=== PATIENT | male | born 1970 | race American Indian/Alaskan Native ===

== ENCOUNTER 2018-12-13 15:04 | Inpatient (IN) | payer BC ==
--- NOTE | 2018-12-13 15:55 | Emergency Department Report ---
Chief Complaint: Dyspnea/Respdistress Stated Complaint: SOB Time Seen by Provider: 12/13/18 15:52 - HPI History of Present Illness: pt presents with exertion SOB a week ago he states he walks 40 feet and feels SOB no SOB at rest (+) palpitations, lightheadedness no CP no recent surgery, no long car/plane ride, no immobilization no PMHx, no meds on a daily basis no hx of [place] no PCP no family cardiac hx no family hx of DVT/PE MSE screening note: Focused history and physical exam performed. Due to findings the following was ordered: EKG, CXR, labs ED Disposition for MSE Condition: Stable
[2018-12-13 16:24] LABS: BUN/Creatinine Ratio 18; Blood Urea Nitrogen 14 mg/dL (9-20); Calcium 8.9 mg/dL (8.4-10.2); Hemolysis Index 21
[2018-12-13 16:29] LABS: Mean Corpuscular HGB Conc 35 % (32-34); Platelet Count 151 K/mm3 (140-440); Red Blood Count 1.29 M/mm3 (3.65-5.03)
--- NOTE | 2018-12-13 16:31 | XRay Report ---
PROCEDURE: XR CHEST ROUTINE 2V TECHNIQUE: PA and lateral views of the chest HISTORY: SOB COMPARISONS: None FINDINGS: There is no evidence of focal infiltrate, pneumothorax or pleural fluid collection. The cardiomediastinal silhouette is normal in appearance. The bony structures are unremarkable. IMPRESSION: 1. No evidence of an acute pulmonary process. If further imaging is required, CT chest may be helpful. This document is electronically signed by Lida Rowland MD., December 13 2018 04:29:27 PM ET
[2018-12-13 16:44] LABS: Hematocrit 15.5 % (35.5-45.6); Hemoglobin 5.4 gm/dl (11.8-15.2); Mean Corpuscular Volume 120 fl (84-94); Red Cell Distribution Width 28.1 % (13.2-15.2)
--- NOTE | 2018-12-13 17:04 | Emergency Department Report ---
ED Shortness of Breath HPI - General Chief Complaint: Dyspnea/Respdistress Stated Complaint: SOB Time Seen by Provider: 12/13/18 16:52 Source: patient Mode of arrival: Ambulatory Limitations: No Limitations - History of Present Illness Initial Comments: Patient is a 48-year-old male presents emergency room for discharge on exertion that has been going on for a couple weeks. Patient states his symptoms have gradually worsened. Patient denies symptoms at rest. Patient denies chest pain. Patient complains of fatigue.. Patient states that his symptoms are better with rest and worse with exertion.. Patient states that his symptoms been going on for a couple weeks gradually but have worsened over the past 48 hours. Patient denies use of NSAIDs. Patient denies dark stool. Patient denies syncope. Patient denies dizziness. Patient denies headache. Patient denies past medical history. MD Complaint: shortness of breath -: Gradual Consistency: intermittent Improves With: rest Worsens With: exertion Treatments Prior to Arrival: none - Related Data Home Oxygen Therapy: No Allergies Allergy/AdvReac Type Severity Reaction Status Date / Time No Known Allergies Allergy Unverified 12/13/18 15:05 ED Review of Systems ROS: Stated complaint: SOB Other details as noted in HPI Constitutional: denies: chills, fever Eyes: denies: eye pain, eye discharge, vision change ENT: denies: ear pain, throat pain Respiratory: SOB with exertion. denies: cough, shortness of breath, SOB at re st, wheezing Cardiovascular: denies: chest pain, palpitations Endocrine: no symptoms reported Gastrointestinal: denies: abdominal pain, nausea, diarrhea Genitourinary: denies: urgency, dysuria Musculoskeletal: denies: back pain, joint swelling, arthralgia Skin: denies: rash, lesions Neurological: denies: headache, weakness, paresthesias Psychiatric: denies: anxiety, depression Hematological/Lymphatic: denies: easy bleeding, easy bruising ED Past Medical Hx - Past Medical History Previous Medical History?: No - Surgical History Past Surgical History?: Yes Additional Surgical History: leg - Family History Family history: no significant - Social History Smoking Status: Never Smoker Substance Use Type: None ED Physical Exam - General Limitations: No Limitations General appearance: alert, in no apparent distress - Head Head exam: Present: atraumatic, normocephalic - Eye Eye exam: Present: normal appearance, PERRL, other (scleral pallor noted) Pupils: Present: normal accommodation - ENT ENT exam: Present: mucous membranes moist - Neck Neck exam: Present: normal inspection - Respiratory Respiratory exam: Present: normal lung sounds bilaterally. Absent: respiratory distress - Cardiovascular Cardiovascular Exam: Present: regular rate, normal rhythm. Absent: systolic murmur, diastolic murmur, rubs, gallop - GI/Abdominal GI/Abdominal exam: Present: soft, normal bowel sounds. Absent: distended, tenderness, guarding - Rectal Rectal exam: Present: normal inspection, normal rectal tone, heme (-) stool, normal prostate. Absent: black stool, bloody stool, fecal impaction, hemorrhoids, mass, tenderness - Extremities Exam Extremities exam: Present: normal inspection - Back Exam Back exam: Present: normal inspection - Neurological Exam Neurological exam: Present: alert, oriented X3 - Psychiatric Psychiatric exam: Present: normal affect, normal mood - Skin Skin exam: Present: warm, dry, intact, normal color. Absent: rash ED Course Vital Signs 12/13/18 12/13/18 12/13/18 15:59 17:24 17:25 Temperature 98.5 F 98.3 F Pulse Rate 91 H 74 Respiratory 16 24 22 Rate Blood Pressure 116/66 Blood Pressure 106/68 [Left] O2 Sat by Pulse 98 99 99 Oximetry - Reevaluation(s) Reevaluation #1: Discussed all results with patient. Patient will be connected to the panel monitor and patient will admitted to the hospitalist service. We will type and screen the patient and transfusion as soon as the screen is available. Patient agrees with transfusion. 12/13/18 17:04 This was also patient. Patient to be admitted to the hospitalist service. Patient agrees with plan of care. 12/13/18 17:33 - Consultations Consultation #1: Hospitalist consult for admission. Hospitalist to admit patient. Bridge orders placed. 12/13/18 17:33 ED Medical Decision Making - Lab Data Result diagrams: 12/13/18 16:02 12/13/18 16:02 - EKG Data -: EKG Interpreted by Me EKG shows normal: sinus rhythm, axis, intervals, QRS complexes, ST-T waves Rate: normal - Medical Decision Making She is a 48-year-old male that just marginal complaints of difficulty on exertion. Patient found to have severe anemia. The patient's Hemoccult was negative. Patient was admitted to the hospitalist service for further evaluation treatment. Patient agrees with plan of care. - Differential Diagnosis OCHOA. Anemia. Critical Care Time: Yes Critical care attestation.: If time is entered above; I have spent that time in minutes in the direct care of this critically ill patient, excluding procedure time. Critical Care Time: 35 minutes ED Disposition Clinical Impression: OCHOA (dyspnea on exertion) Anemia Qualifiers: Anemia type: unspecified type Qualified Code(s): D64.9 - Anemia, unspecified Disposition: DC-09 OP ADMIT IP TO THIS HOSP Is pt being admited?: Yes Does the pt Need Aspirin: No Condition: Critical Time of Disposition: 17:34
[2018-12-13 17:18] LABS: Creatine Kinase MB 1.3 ng/mL (0.0-4.0)
[2018-12-13 17:38] LABS: Anisocytosis 3+; Basophils % (Manual) 0 % (0.0-1.8); Dimorphic RBC Yes; Eosinophils % (Manual) 0 % (0.0-4.3); Macrocytosis 2+; Poikilocytosis 2+; Total Cells Counted 100
[2018-12-13 17:39] LABS: Hypochromasia 2+
[2018-12-13 17:40] LABS: Giant Platelets Few; Large Platelets Few; Ovalocytes 2+; Platelet Estimate Consistent w Auto; Tear Drop Cells 2+
--- NOTE | 2018-12-13 21:28 | History and Physical Report ---
History of Present Illness Date of examination: 12/13/18 Date of admission: 12/13/18 18:41 Chief complaint: Severe fatigue for 2 weeks History of present illness: 48-year-old male presents emergency room for SOB on exertion that has been going on for a couple weeks. Patient states his symptoms have gradually worsened. Patient denies symptoms at rest. Patient denies chest pain. Patient complains of fatigue.. Patient states that his symptoms are better with rest and worse with exertion.. Patient states that his symptoms been going on for a couple weeks gradually but have worsened over the past 48 hours. Patient denies use of NSAIDs. Patient denies dark stool. Patient denies syncope. Patient denies dizziness. Patient denies headache. Patient denies past medical history. Past Medical History Previous Medical History?: No Surgical History Past Surgical History?: Yes Additional Surgical History: leg Family History Family history: no significant Social History Smoking Status: Never Smoker Substance Use Type: None Review of Systems ROS: Stated complaint: SOB Other details as noted in HPI Constitutional: denies: chills, fever Eyes: denies: eye pain, eye discharge, vision change ENT: denies: ear pain, throat pain Respiratory: SOB with exertion. denies: cough, shortness of breath, SOB at rest, wheezing Cardiovascular: denies: chest pain, palpitations Endocrine: no symptoms reported Gastrointestinal: denies: abdominal pain, nausea, diarrhea Genitourinary: denies: urgency, dysuria Musculoskeletal: denies: back pain, joint swelling, arthralgia Skin: denies: rash, lesions Neurological: denies: headache, weakness, paresthesias Psychiatric: denies: anxiety, depression Hematological/Lymphatic: denies: easy bleeding, easy bruising Medications and Allergies Allergies Allergy/AdvReac Type Severity Reaction Status Date / Time No Known Allergies Allergy Verified 12/13/18 21:48 Exam - Constitutional Vitals: Temp Pulse Resp BP Pulse Ox 97.9 F 83 18 123/61 97 12/13/18 19:48 12/13/18 19:48 12/13/18 19:48 12/13/18 19:48 12/13/18 19:48 General appearance: Present: no acute distress, well-nourished, other (pale mucous membranes) - EENT Eyes: Present: PERRL ENT: hearing intact, clear oral mucosa - Neck Neck: Present: supple, normal ROM - Respiratory Respiratory effort: normal Respiratory: bilateral: CTA - Cardiovascular Heart Sounds: Present: S1 & S2. Absent: rub, click - Extremities Extremities: pulses symmetrical, No edema Peripheral Pulses: within normal limits - Abdominal General gastrointestinal: Present: soft, non-tender, non-distended, normal bowel sounds Male genitourinary: Present: normal - Integumentary Integumentary: Present: clear, warm, dry - Musculoskeletal Musculoskeletal: gait normal, strength equal bilaterally - Psychiatric Psychiatric: appropriate mood/affect, intact judgment & insight - Neurologic Neurologic: CNII-XII intact, moves all extremities Results - Labs CBC & Chem 7: 12/13/18 16:02 12/13/18 16:02 Labs: Laboratory Last Values WBC 2.7 K/mm3 (4.5-11.0) L 12/13/18 16:02 RBC 1.29 M/mm3 (3.65-5.03) L 12/13/18 16:02 Hgb 5.4 gm/dl (11.8-15.2) L* 12/13/18 16:02 Hct 15.5 % (35.5-45.6) L* 12/13/18 16:02 MCV 120 fl (84-94) H 12/13/18 16:02 MCH 42 pg (28-32) H 12/13/18 16:02 MCHC 35 % (32-34) H 12/13/18 16:02 RDW 28.1 % (13.2-15.2) H 12/13/18 16:02 Plt Count 151 K/mm3 (140-440) 12/13/18 16:02 Add Manual Diff Complete 12/13/18 16:02 Total Counted 100 12/13/18 16:02 Seg Neuts % (Manual) 74.0 % (40.0-70.0) H 12/13/18 16:02 Band Neutrophils % 1.0 % 12/13/18 16:02 Lymphocytes % (Manual) 23.0 % (13.4-35.0) 12/13/18 16:02 Reactive Lymphs % (Man) 0 % 12/13/18 16:02 Monocytes % (Manual) 2.0 % (0.0-7.3) 12/13/18 16:02 Eosinophils % (Manual) 0 % (0.0-4.3) 12/13/18 16:02 Basophils % (Manual) 0 % (0.0-1.8) 12/13/18 16:02 Metamyelocytes % 0 % 12/13/18 16:02 Myelocytes % 0 % 12/13/18 16:02 Promyelocytes % 0 % 12/13/18 16:02 Blast Cells % 0 % 12/13/18 16:02 Nucleated RBC % Not Reportable 12/13/18 16:02 Seg Neutrophils # Man 2.0 K/mm3 (1.8-7.7) 12/13/18 16:02 Band Neutrophils # 0.0 K/mm3 12/13/18 16:02 Lymphocytes # (Manual) 0.6 K/mm3 (1.2-5.4) L 12/13/18 16:02 Abs React Lymphs (Man) 0.0 K/mm3 12/13/18 16:02 Monocytes # (Manual) 0.1 K/mm3 (0.0-0.8) 12/13/18 16:02 Eosinophils # (Manual) 0.0 K/mm3 (0.0-0.4) 12/13/18 16:02 Basophils # (Manual) 0.0 K/mm3 (0.0-0.1) 12/13/18 16:02 Metamyelocytes # 0.0 K/mm3 12/13/18 16:02 Myelocytes # 0.0 K/mm3 12/13/18 16:02 Promyelocytes # 0.0 K/mm3 12/13/18 16:02 Blast Cells # 0.0 K/mm3 12/13/18 16:02 WBC Morphology Not Reportable 12/13/18 16:02 Hypersegmented Neuts Not Reportable 12/13/18 16:02 Hyposegmented Neuts Not Reportable 12/13/18 16:02 Hypogranular Neuts Not Reportable 12/13/18 16:02 Smudge Cells Not Reportable 12/13/18 16:02 Toxic Granulation Not Reportable 12/13/18 16:02 Toxic Vacuolation Not Reportable 12/13/18 16:02 Dohle Bodies Not Reportable 12/13/18 16:02 Pelger-Huet Anomaly Not Reportable 12/13/18 16:02 Svetlana Rods Not Reportable 12/13/18 16:02 Platelet Estimate Consistent w auto 12/13/18 16:02 Clumped Platelets Not Reportable 12/13/18 16:02 Plt Clumps, EDTA Not Reportable 12/13/18 16:02 Large Platelets Few 12/13/18 16:02 Giant Platelets Few 12/13/18 16:02 Platelet Satelliting Not Reportable 12/13/18 16:02 Plt Morphology Comment Not Reportable 12/13/18 16:02 RBC Morphology Not Reportable 12/13/18 16:02 Dimorphic RBCs Yes 12/13/18 16:02 Polychromasia Not Reportable 12/13/18 16:02 Hypochromasia 2+ 12/13/18 16:02 Poikilocytosis 2+ 12/13/18 16:02 Anisocytosis 3+ 12/13/18 16:02 Microcytosis 2+ 12/13/18 16:02 Macrocytosis 2+ 12/13/18 16:02 Spherocytes Not Reportable 12/13/18 16:02 Pappenheimer Bodies Not Reportable 12/13/18 16:02 Sickle Cells Not Reportable 12/13/18 16:02 Target Cells Not Reportable 12/13/18 16:02 Tear Drop Cells 2+ 12/13/18 16:02 Ovalocytes 2+ 12/13/18 16:02 Helmet Cells Not Reportable 12/13/18 16:02 [place] Bodies Not Reportable 12/13/18 16:02 [place] Rings Not Reportable 12/13/18 16:[address] [employer] Cells Not Reportable 12/13/18 16:02 Bite Cells Not Reportable 12/13/18 16:02 Crenated Cell Not Reportable 12/13/18 16:02 Elliptocytes Not Reportable 12/13/18 16:02 Acanthocytes (Spur) Not Reportable 12/13/18 16:02 Rouleaux Not Reportable 12/13/18 16:02 Hemoglobin C Crystals Not Reportable 12/13/18 16:02 Schistocytes Not Reportable 12/13/18 16:02 Malaria parasites Not Reportable 12/13/18 16:02 Adolfo Bodies Not Reportable 12/13/18 16:02 Hem Pathologist Commnt No 12/13/18 16:02 Sodium 136 mmol/L (137-145) L 12/13/18 16:02 Potassium 3.9 mmol/L (3.6-5.0) 12/13/18 16:02 Chloride 100.3 mmol/L (98-107) 12/13/18 16:02 Carbon Dioxide 25 mmol/L (22-30) 12/13/18 16:02 Anion Gap 15 mmol/L 12/13/18 16:02 BUN 14 mg/dL (9-20) 12/13/18 16:02 Creatinine 0.8 mg/dL (0.8-1.5) 12/13/18 16:02 Estimated GFR > 60 ml/min 12/13/18 16:02 BUN/Creatinine Ratio 18 % 12/13/18 16:02 Glucose 95 mg/dL (75-100) 12/13/18 16:02 Calcium 8.9 mg/dL (8.4-10.2) 12/13/18 16:02 Phosphorus 3.10 mg/dL (2.5-4.5) 12/13/18 16:02 Magnesium 2.00 mg/dL (1.7-2.3) 12/13/18 16:02 Total Creatine Kinase 60 units/L (55-170) 12/13/18 16:57 CK-MB (CK-2) 1.3 ng/mL (0.0-4.0) 12/13/18 16:57 CK-MB (CK-2) Rel Index 2.1 (0-4) 12/13/18 16:57 Troponin T < 0.010 ng/mL (0.00-0.029) 12/13/18 16:57 NT-Pro-B Natriuret Pep 140.2 pg/mL (0-900) 12/13/18 16:02 Blood Type O POSITIVE 12/13/18 17:10 Antibody Screen Negative 12/13/18 17:10 Short CBC 12/13/18 Range/Units 16:02 WBC 2.7 L (4.5-11.0) K/mm3 Hgb 5.4 L* (11.8-15.2) gm/dl Hct 15.5 L* (35.5-45.6) % Plt Count 151 (140-440) K/mm3 BMP 12/13/18 16:02 Sodium 136 L Potassium 3.9 Chloride 100.3 Carbon Dioxide 25 BUN 14 Creatinine 0.8 Glucose 95 Calcium 8.9 Cardiac Enzymes 12/13/18 Range/Units 16:57 Total Creatine Kinase 60 (55-170) units/L CK-MB (CK-2) 1.3 (0.0-4.0) ng/mL Troponin T < 0.010 (0.00-0.029) ng/mL - Imaging and Cardiology EKG: report reviewed (80 NSR) Imaging and Cardiology: CXR IMPRESSION: 1. No evidence of an acute pulmonary process. If further imaging is required, CT chest may be helpful. Assessment and Plan Advance Directives: Yes (FC) VTE prophylaxis?: Chemical Plan of care discussed with patient/family: Yes - Patient Problems (1) Symptomatic anemia Current Visit: Yes Status: Acute Plan to address problem: Anemia work up High MCV and MCHC suspicion for IF deficiency Transfuse 2 units of PRBC Diff dx B12 def versus Bone marrow suppression Hem onc consult ??Bone marrow biopsy (2) DVT prophylaxis Current Visit: Yes Status: Acute Plan to address problem: On Lovenox and GI prophylaxis
[2018-12-13] MEDS ORDERED: NACL 0.9% 500 ML 500 ML IV ONE (21:29)
[2018-12-13] MEDS ORDERED: ZOFRAN IV PRN (21:32)
[2018-12-13] MEDS ORDERED: TYLENOL PO PRN (21:32)
[2018-12-13] MEDS ORDERED: PERCOCET 5/325 PO PRN (21:32)
[2018-12-13] MEDS ORDERED: SODIUM CHLORIDE FLUSH SYRINGE 10 ML IV PRN (21:32)
[2018-12-13] MEDS: D5NS 1,000 ML IV SCH (22:20)
[2018-12-13] MEDS: SODIUM CHLORIDE FLUSH SYRINGE 10 ML IV SCH (23:22)
[2018-12-13] MEDS: PEPCID IV SCH (23:22)
[2018-12-14 01:19] LABS: % Iron Saturation 65.84 %
[2018-12-14 08:49] LABS: Hematocrit 21.1 % (35.5-45.6); Hemoglobin 7.5 gm/dl (11.8-15.2); Mean Corpuscular HGB Conc 35 % (32-34); Mean Corpuscular Volume 106 fl (84-94); Platelet Count 118 K/mm3 (140-440)
[2018-12-14 08:53] LABS: Red Cell Distribution Width 32.5 % (13.2-15.2)
[2018-12-14 09:04] LABS: Alanine Aminotransferase 40 units/L (7-56); Albumin 3.8 g/dL (3.9-5); BUN/Creatinine Ratio 15; Blood Urea Nitrogen 12 mg/dL (9-20); Calcium 8.1 mg/dL (8.4-10.2); Hemolysis Index 4
[2018-12-14] MEDS: PEPCID IV SCH (09:31)
[2018-12-14] MEDS: SODIUM CHLORIDE FLUSH SYRINGE 10 ML IV SCH ×2 (09:31→22:09)
[2018-12-14 09:48] LABS: Eosinophils % (Manual) 0 % (0.0-4.3); Total Cells Counted 100
[2018-12-14 09:49] LABS: Anisocytosis 3+; Macrocytosis 1+; Poikilocytosis 2+
[2018-12-14 09:50] LABS: Ovalocytes 1+; Schistocytes Rare; Tear Drop Cells 1+
[2018-12-14 09:51] LABS: Basophilic Stippling Rare
[2018-12-14 09:52] LABS: Platelet Estimate Consistent w Auto
[2018-12-14] MEDS ORDERED: VITAMIN B-12 SUB-Q ONE (10:00)
--- NOTE | 2018-12-14 13:07 | Cat Scan Report ---
CT CHEST WITH CONTRAST: HISTORY: Lung mass. COMPARISON: Chest x-ray dated 12/13/18. TECHNIQUE: Helical CT in 1.25mm intervals following IV contrast. Sagittal and coronal reformatted images. FINDINGS: Thyroid gland: Normal. Tracheobronchial tree: Normal. Esophagus: Normal. Heart: Normal. Pericardium: Normal. Mediastinum: Normal. Lung Paz: Within normal limits. No significant underlying parenchymal disease. No lung mass. A 1.5 cm subpleural bleb is noted in the anterior left upper lobe. Pleural Spaces: Normal. Musculoskeletal: Mild scoliosis. No suspicious bony lesion or fracture. IMPRESSION: Unremarkable CT chest with contrast.
--- NOTE | 2018-12-14 16:24 | Progress Note ---
Assessment and Plan Assessment and plan: Symptomatic anemia. hemoglobin now 7.5 after 2units PRBC transfusion. Hemoglobin was 5.4 on admission MCV high Vit B12 deficiency Vit B12 dose given Dr. Esteves following stool occult blood neg Leukopenia Monitor Thrombocytopenia. Visit slightly low today 115. Was normal yesterday Full code status History Interval history: Patient presented with shortness of breath found to have hemoglobin of 7.5 less shortness of breath No chest pain Hospitalist Physical - Physical exam Narrative exam: Gen: Not in acute distress, lying in bed HEENT: Normocephalic, atraumatic Neck: supple, no JVD Heart: S1 and S2 reg, no murmurs, rubs or gallop Lungs: Clear, no crackles Abd: soft, non tender, non distended, normal BS Ext: No edema, no clubbing, no cyanosis, Neuro: AAO x 3, no focal signs, moves all ext Psych:Normal mood - Constitutional Vitals: Temp Pulse Resp BP Pulse Ox 98.4 F 88 20 115/69 96 12/14/18 11:46 12/14/18 11:46 12/14/18 11:46 12/14/18 11:46 12/14/18 11:46 General appearance: Present: no acute distress, well-nourished, other (pale mucous membranes) Results - Labs CBC & Chem 7: 12/14/18 08:36 12/14/18 08:36 Labs: Laboratory Last Values WBC 2.8 K/mm3 (4.5-11.0) L 12/14/18 08:36 RBC 2.00 M/mm3 (3.65-5.03) L 12/14/18 08:36 Hgb 7.5 gm/dl (11.8-15.2) L 12/14/18 08:36 Hct 21.1 % (35.5-45.6) L 12/14/18 08:36 MCV 106 fl (84-94) H 12/14/18 08:36 MCH 37 pg (28-32) H 12/14/18 08:36 MCHC 35 % (32-34) H 12/14/18 08:36 RDW 32.5 % (13.2-15.2) H 12/14/18 08:36 Plt Count 118 K/mm3 (140-440) L 12/14/18 08:36 Add Manual Diff Complete 12/14/18 08:36 Total Counted 100 12/14/18 08:36 Seg Neuts % (Manual) 79.0 % (40.0-70.0) H 12/14/18 08:36 Band Neutrophils % 0 % 12/14/18 08:36 Lymphocytes % (Manual) 19.0 % (13.4-35.0) 12/14/18 08:36 Reactive Lymphs % (Man) 0 % 12/14/18 08:36 Monocytes % (Manual) 1.0 % (0.0-7.3) 12/14/18 08:36 Eosinophils % (Manual) 0 % (0.0-4.3) 12/14/18 08:36 Basophils % (Manual) 1.0 % (0.0-1.8) 12/14/18 08:36 Metamyelocytes % 0 % 12/14/18 08:36 Myelocytes % 0 % 12/14/18 08:36 Promyelocytes % 0 % 12/14/18 08:36 Blast Cells % 0 % 12/14/18 08:36 Nucleated RBC % 1.0 % (0.0-0.9) H 12/14/18 08:36 Seg Neutrophils # Man 2.2 K/mm3 (1.8-7.7) 12/14/18 08:36 Band Neutrophils # 0.0 K/mm3 12/14/18 08:36 Lymphocytes # (Manual) 0.5 K/mm3 (1.2-5.4) L 12/14/18 08:36 Abs React Lymphs (Man) 0.0 K/mm3 12/14/18 08:36 Monocytes # (Manual) 0.0 K/mm3 (0.0-0.8) 12/14/18 08:36 Eosinophils # (Manual) 0.0 K/mm3 (0.0-0.4) 12/14/18 08:36 Basophils # (Manual) 0.0 K/mm3 (0.0-0.1) 12/14/18 08:36 Metamyelocytes # 0.0 K/mm3 12/14/18 08:36 Myelocytes # 0.0 K/mm3 12/14/18 08:36 Promyelocytes # 0.0 K/mm3 12/14/18 08:36 Blast Cells # 0.0 K/mm3 12/14/18 08:36 WBC Morphology Not Reportable 12/14/18 08:36 Hypersegmented Neuts Not Reportable 12/14/18 08:36 Hyposegmented Neuts Not Reportable 12/14/18 08:36 Hypogranular Neuts Not Reportable 12/14/18 08:36 Smudge Cells Not Reportable 12/14/18 08:36 Toxic Granulation Not Reportable 12/14/18 08:36 Toxic Vacuolation Not Reportable 12/14/18 08:36 Dohle Bodies Not Reportable 12/14/18 08:36 Pelger-Huet Anomaly Not Reportable 12/14/18 08:36 Svetlana Rods Not Reportable 12/14/18 08:36 Platelet Estimate Consistent w auto 12/14/18 08:36 Clumped Platelets Not Reportable 12/14/18 08:36 Plt Clumps, EDTA Not Reportable 12/14/18 08:36 Large Platelets Not Reportable 12/14/18 08:36 Giant Platelets Not Reportable 12/14/18 08:36 Platelet Satelliting Not Reportable 12/14/18 08:36 Plt Morphology Comment Not Reportable 12/14/18 08:36 RBC Morphology Not Reportable 12/14/18 08:36 Dimorphic RBCs Not Reportable 12/14/18 08:36 Polychromasia Not Reportable 12/14/18 08:36 Hypochromasia Not Reportable 12/14/18 08:36 Poikilocytosis 2+ 12/14/18 08:36 Basophilic Stippling Rare 12/14/18 08:36 Anisocytosis 3+ 12/14/18 08:36 Microcytosis 2+ 12/14/18 08:36 Macrocytosis 1+ 12/14/18 08:36 Spherocytes Not Reportable 12/14/18 08:36 Pappenheimer Bodies Not Reportable 12/14/18 08:36 Sickle Cells Not Reportable 12/14/18 08:36 Target Cells Not Reportable 12/14/18 08:36 Tear Drop Cells 1+ 12/14/18 08:36 Ovalocytes 1+ 12/14/18 08:36 Helmet Cells Not Reportable 12/14/18 08:36 [place] Bodies Not Reportable 12/14/18 08:36 [place] Rings Not Reportable 12/14/18 08:36 [place] Cells Not Reportable 12/14/18 08:36 Bite Cells Not Reportable 12/14/18 08:36 Crenated Cell Not Reportable 12/14/18 08:36 Elliptocytes 1+ 12/14/18 08:36 Acanthocytes (Spur) Not Reportable 12/14/18 08:36 Rouleaux Not Reportable 12/14/18 08:36 Hemoglobin C Crystals Not Reportable 12/14/18 08:36 Schistocytes Rare 12/14/18 08:36 Malaria parasites Not Reportable 12/14/18 08:36 Adolfo Bodies Not Reportable 12/14/18 08:36 Hem Pathologist Commnt No 12/14/18 08:36 Sodium 139 mmol/L (137-145) 12/14/18 08:36 Potassium 4.0 mmol/L (3.6-5.0) 12/14/18 08:36 Chloride 105.0 mmol/L (98-107) 12/14/18 08:36 Carbon Dioxide 26 mmol/L (22-30) 12/14/18 08:36 Anion Gap 12 mmol/L 12/14/18 08:36 BUN 12 mg/dL (9-20) 12/14/18 08:36 Creatinine 0.8 mg/dL (0.8-1.5) 12/14/18 08:36 Estimated GFR > 60 ml/min 12/14/18 08:36 BUN/Creatinine Ratio 15 % 12/14/18 08:36 Glucose 105 mg/dL (75-100) H 12/14/18 08:36 Hemoglobin A1c 5.5 % (4-6) 12/13/18 23:06 Calcium 8.1 mg/dL (8.4-10.2) L 12/14/18 08:36 Phosphorus 3.10 mg/dL (2.5-4.5) 12/13/18 16:02 Magnesium 2.00 mg/dL (1.7-2.3) 12/13/18 16:02 Iron 106 ug/dL (49-181) 12/13/18 23:06 TIBC 161 mcg/dL (250-450) L 12/13/18 23:06 % Saturation 65.84 % 12/13/18 23:06 Transferrin 143 mg/dl (180-329) L 12/13/18 23:06 Total Bilirubin 2.70 mg/dL (0.1-1.2) H 12/14/18 08:36 AST 69 units/L (5-40) H 12/14/18 08:36 ALT 40 units/L (7-56) 12/14/18 08:36 Alkaline Phosphatase 45 units/L (35-129) 12/14/18 08:36 Lactate Dehydrogenase 3141 units/L (91-180) H 12/14/18 08:36 Total Creatine Kinase 60 units/L (55-170) 12/13/18 16:57 CK-MB (CK-2) 1.3 ng/mL (0.0-4.0) 12/13/18 16:57 CK-MB (CK-2) Rel Index 2.1 (0-4) 12/13/18 16:57 Troponin T < 0.010 ng/mL (0.00-0.029) 12/13/18 16:57 NT-Pro-B Natriuret Pep 140.2 pg/mL (0-900) 12/13/18 16:02 Total Protein 6.2 g/dL (6.3-8.2) L 12/14/18 08:36 Albumin 3.8 g/dL (3.9-5) L 12/14/18 08:36 Albumin/Globulin Ratio 1.6 % 12/14/18 08:36 Vitamin B12 150 pg/mL (211-911) L 12/13/18 23:06 Blood Type O POSITIVE 12/13/18 17:10 Antibody Screen Negative 12/13/18 17:10 Crossmatch See Detail 12/13/18 17:10 Active Medications - Current Medications Current Medications: Generic Name Dose Route Start Last Admin Trade Name Freq PRN Reason Stop Dose Admin Acetaminophen 650 mg 12/13/18 21:32 Tylenol PO Q4H PRN Pain MILD(1-3)/Fever >100.5/LERNER Famotidine 20 mg 12/14/18 22:00 Pepcid PO BID ELLEN Dextrose/Sodium Chloride 1,000 mls @ 42 mls/hr 12/13/18 22:00 12/13/18 22:20 D5ns IV 42 mls/hr DIRECT ELLEN Administration Ondansetron HCl 4 mg 12/13/18 21:32 Zofran IV Q8H PRN Nausea And Vomiting Oxycodone/Acetaminophen 1 tab 12/13/18 21:32 Percocet 5/325 PO Q6H PRN Pain, Moderate (4-6) Sodium Chloride 10 ml 12/13/18 22:00 12/14/18 09:31 Sodium Chloride Flush Syringe 10 Ml IV 10 ml BID ELLEN Administration Sodium Chloride 10 ml 12/13/18 21:32 Sodium Chloride Flush Syringe 10 Ml IV PRN PRN LINE FLUSH
[2018-12-14] MEDS: PEPCID PO SCH (22:07)
--- NOTE | 2018-12-14 22:26 | Event Note ---
Date: 12/14/18 [id number]
--- NOTE | 2018-12-15 05:00 | Consultation ---
REASON FOR CONSULTATION: Macrocytic anemia. HISTORY OF PRESENT ILLNESS: I saw the patient, a 48-year-old male in the medical floor. The patient has been having shortness of breath on exertion for a few weeks and these were getting worse. He also had fatigue. After admission, he was found to be anemic. MCV was high. Blood transfusion has been given. I have been asked to evaluate the patient. At this time, main complaints includes as above. REVIEW OF SYSTEMS: No headache, no chest pain, no vomiting, no diarrhea, no hematemesis, no hematochezia. No seizure or syncope. No loss of consciousness. PAST MEDICAL HISTORY: None significant, PAST SURGICAL HISTORY: Nil. FAMILY HISTORY: Not contributory. SOCIAL HISTORY: Nonsmoker. ALLERGIES: None. MEDICATIONS: Present medications includes Pepcid, Zofran, oxycodone. PHYSICAL EXAMINATION: VITAL SIGNS: Temperature 98.3, pulse 76, respirations 20, BP 122/73. HEENT: No pallor. No icterus. NECK: No neck lymph nodes. HEART: S1, S2. LUNGS: Clear to auscultation. ABDOMEN: Soft. EXTREMITIES: No calf tenderness. NEUROLOGIC: Alert, awake, oriented. LABORATORY DATA: White cell 2.7, hemoglobin 5.4, MCV 120, platelet 151. Other labs include potassium 3.9, creatinine 0.8, calcium 8.9, serum iron 106, bilirubin 2.7, LDH 3141. RADIOLOGY: CT chest was done, this shows unremarkable. ASSESSMENT AND PLAN: 1. Macrocytic anemia. The patient received blood transfusion. B12 level was found to be low. We will give B12 replacement. Peripheral smear has been ordered and then I discussed with the patient regarding possibility of this being a B12 deficiency. Other etiologies are also possible. Peripheral smear evaluation has been done. Symptoms of shortness of breath secondary to anemia. 2. If there is no improvement, we will look into further investigations. JOB# [id number] NM/NTS
[2018-12-15 06:21] LABS: Hematocrit 21.8 % (35.5-45.6); Hemoglobin 7.6 gm/dl (11.8-15.2); Mean Corpuscular HGB Conc 35 % (32-34); Mean Corpuscular Volume 107 fl (84-94); Platelet Count 119 K/mm3 (140-440); Red Blood Count 2.04 M/mm3 (3.65-5.03)
[2018-12-15 06:38] LABS: Red Cell Distribution Width 32.2 % (13.2-15.2)
[2018-12-15] MEDS: D5NS 1,000 ML IV SCH (06:41)
[2018-12-15 06:44] LABS: Alanine Aminotransferase 40 units/L (7-56); Albumin 3.6 g/dL (3.9-5); BUN/Creatinine Ratio 14; Blood Urea Nitrogen 10 mg/dL (9-20); Calcium 8.2 mg/dL (8.4-10.2); Hemolysis Index 1
--- NOTE | 2018-12-15 07:48 | Hem/Onc Progress Note ---
Assessment and Plan 1. Macrocytic anemia. The patient received blood transfusion. B12 level was found to be low. B12 replacement. Peripheral smear has been ordered and then I discussed with the patient regarding possibility of this being a B12 deficiency. Other etiologies are also possible. Peripheral smear evaluation has been done. Symptoms of shortness of breath secondary to anemia. 12/15 d/w pt and family reg b12 - BMBx d/w dr marshall - BMBX and OP f/u pt was on oral b12 till mid Oct 2018 - Patient Problems (1) Macrocytic anemia Current Visit: Yes Status: Acute Subjective Date of service: 12/15/18 Objective - Constitutional Vitals: Last Vital Signs Temp 97.9 F 12/15/18 05:38 Pulse 72 12/15/18 05:38 Resp 18 12/15/18 05:38 BP 134/82 12/15/18 05:38 Pulse Ox 98 12/15/18 05:38 Pain Intensity (0-10): denies any pain General appearance: no acute distress Performance status: 3-limited selfcare - EENT Eyes: EOM intact ENT: clear oral mucosa Lymph node exam: negative cervical - Neck Neck: normal ROM - Respiratory Respiratory effort: Positive: normal Respiratory: bilateral: CTA - Cardiovascular Heart Sounds: Present: S1 & S2 Extremities: No edema - Gastrointestinal General gastrointestinal: Present: soft, non-tender Rectal Exam: deferred - Genitourinary Male genitourinary: Present: deferred - Integumentary Integumentary: warm - Musculoskeletal Musculoskeletal: strength equal bilaterally - Neurologic Neurologic: moves all extremities - Labs Lab Results: Laboratory Results - last 24 hr 12/14/18 12/14/18 12/15/18 08:36 08:36 05:49 WBC 2.8 L 3.1 L RBC 2.00 L 2.04 L Hgb 7.5 L 7.6 L Hct 21.1 L 21.8 L MCV 106 H 107 H MCH 37 H 37 H MCHC 35 H 35 H RDW 32.5 H 32.2 H Plt Count 118 L 119 L Add Manual Diff Complete Total Counted 100 Seg Neuts % (Manual) 79.0 H Band Neutrophils % 0 Lymphocytes % (Manual) 19.0 Reactive Lymphs % (Man) 0 Monocytes % (Manual) 1.0 Eosinophils % (Manual) 0 Basophils % (Manual) 1.0 Metamyelocytes % 0 Myelocytes % 0 Promyelocytes % 0 Blast Cells % 0 Nucleated RBC % 1.0 H Seg Neutrophils # Man 2.2 Band Neutrophils # 0.0 Lymphocytes # (Manual) 0.5 L Abs React Lymphs (Man) 0.0 Monocytes # (Manual) 0.0 Eosinophils # (Manual) 0.0 Basophils # (Manual) 0.0 Metamyelocytes # 0.0 Myelocytes # 0.0 Promyelocytes # 0.0 Blast Cells # 0.0 WBC Morphology Not Reportable Hypersegmented Neuts Not Reportable Hyposegmented Neuts Not Reportable Hypogranular Neuts Not Reportable Smudge Cells Not Reportable Toxic Granulation Not Reportable Toxic Vacuolation Not Reportable Dohle Bodies Not Reportable Pelger-Huet Anomaly Not Reportable Svetlana Rods Not Reportable Platelet Estimate Consistent w auto Clumped Platelets Not Reportable Plt Clumps, EDTA Not Reportable Large Platelets Not Reportable Giant Platelets Not Reportable Platelet Satelliting Not Reportable Plt Morphology Comment Not Reportable RBC Morphology Not Reportable Dimorphic RBCs Not Reportable Polychromasia Not Reportable Hypochromasia Not Reportable Poikilocytosis 2+ Basophilic Stippling Rare Anisocytosis 3+ Microcytosis 2+ Macrocytosis 1+ Spherocytes Not Reportable Pappenheimer Bodies Not Reportable Sickle Cells Not Reportable Target Cells Not Reportable Tear Drop Cells 1+ Ovalocytes 1+ Helmet Cells Not Reportable [place] Bodies Not Reportable [place] Rings Not Reportable [place] Cells Not Reportable Bite Cells Not Reportable Crenated Cell Not Reportable Elliptocytes 1+ Acanthocytes (Spur) Not Reportable Rouleaux Not Reportable Hemoglobin C Crystals Not Reportable Schistocytes Rare Malaria parasites Not Reportable Adolfo Bodies Not Reportable Hem Pathologist Commnt No Sodium 139 Potassium 4.0 Chloride 105.0 Carbon Dioxide 26 Anion Gap 12 BUN 12 Creatinine 0.8 Estimated GFR > 60 BUN/Creatinine Ratio 15 Glucose 105 H Calcium 8.1 L Total Bilirubin 2.70 H AST 69 H ALT 40 Alkaline Phosphatase 45 Lactate Dehydrogenase 3141 H Total Protein 6.2 L Albumin 3.8 L Albumin/Globulin Ratio 1.6 12/15/18 05:49 WBC RBC Hgb Hct MCV MCH MCHC RDW Plt Count Add Manual Diff Total Counted Seg Neuts % (Manual) Band Neutrophils % Lymphocytes % (Manual) Reactive Lymphs % (Man) Monocytes % (Manual) Eosinophils % (Manual) Basophils % (Manual) Metamyelocytes % Myelocytes % Promyelocytes % Blast Cells % Nucleated RBC % Seg Neutrophils # Man Band Neutrophils # Lymphocytes # (Manual) Abs React Lymphs (Man) Monocytes # (Manual) Eosinophils # (Manual) Basophils # (Manual) Metamyelocytes # Myelocytes # Promyelocytes # Blast Cells # WBC Morphology Hypersegmented Neuts Hyposegmented Neuts Hypogranular Neuts Smudge Cells Toxic Granulation Toxic Vacuolation Dohle Bodies Pelger-Huet Anomaly Svetlana Rods Platelet Estimate Clumped Platelets Plt Clumps, EDTA Large Platelets Giant Platelets Platelet Satelliting Plt Morphology Comment RBC Morphology Dimorphic RBCs Polychromasia Hypochromasia Poikilocytosis Basophilic Stippling Anisocytosis Microcytosis Macrocytosis Spherocytes Pappenheimer Bodies Sickle Cells Target Cells Tear Drop Cells Ovalocytes Helmet Cells [place] Bodies [place] Rings [place] Cells Bite Cells Crenated Cell Elliptocytes Acanthocytes (Spur) Rouleaux Hemoglobin C Crystals Schistocytes Malaria parasites Adolfo Bodies Hem Pathologist Commnt Sodium 140 Potassium 3.8 Chloride 104.6 Carbon Dioxide 25 Anion Gap 14 BUN 10 Creatinine 0.7 L Estimated GFR > 60 BUN/Creatinine Ratio 14 Glucose 97 Calcium 8.2 L Total Bilirubin 2.40 H AST 72 H ALT 40 Alkaline Phosphatase 41 Lactate Dehydrogenase Total Protein 6.1 L Albumin 3.6 L Albumin/Globulin Ratio 1.4 Medications & Allergies - Medications Allergies/Adverse Reactions: Allergies No Known Allergies Allergy (Verified 12/13/18 21:48) Home Medications: Home Medications Medication Instructions Recorded Confirmed Last Taken Type RX: No Known Home Medications [No 12/14/18 12/14/18 Unknown History Reported Home Medications] Active Medications: Generic Name Dose Route Start Last Admin Trade Name Freq PRN Reason Stop Dose Admin Acetaminophen 650 mg 12/13/18 21:32 Tylenol PO Q4H PRN Pain MILD(1-3)/Fever >100.5/LERNER Famotidine 20 mg 12/14/18 22:00 12/14/18 22:07 Pepcid PO 20 mg BID ELLEN Administration Dextrose/Sodium Chloride 1,000 mls @ 42 mls/hr 12/13/18 22:00 12/15/18 06:41 D5ns IV 42 mls/hr DIRECT ELLEN Administration Ondansetron HCl 4 mg 12/13/18 21:32 Zofran IV Q8H PRN Nausea And Vomiting Oxycodone/Acetaminophen 1 tab 12/13/18 21:32 Percocet 5/325 PO Q6H PRN Pain, Moderate (4-6) Sodium Chloride 10 ml 12/13/18 22:00 12/14/18 22:09 Sodium Chloride Flush Syringe 10 Ml IV 10 ml BID ELLEN Administration Sodium Chloride 10 ml 12/13/18 21:32 Sodium Chloride Flush Syringe 10 Ml IV PRN PRN LINE FLUSH
[2018-12-15] MEDS: THERAGRAN-M Tab PO SCH (10:17)
[2018-12-15] MEDS: PEPCID PO SCH ×2 (10:17→23:03)
[2018-12-15] MEDS: SODIUM CHLORIDE FLUSH SYRINGE 10 ML IV SCH ×2 (10:17→23:03)
[2018-12-15] MEDS ORDERED: VITAMIN B-12 SUB-Q ONE (10:30)
--- NOTE | 2018-12-15 12:47 | Progress Note ---
Assessment and Plan Assessment and plan: Symptomatic anemia. Patient for bone marrow biopsy. H&H stable. MCV high Vit B12 deficiency Vit B12 dose given Dr. Esteves following stool occult blood neg Leukopenia Monitor Thrombocytopenia. Continue to monitor CBC Full code status Disposition. Patient will likely discharge after bone marrow biopsy. History Interval history: No new issues overnight. Hospitalist Physical - Constitutional Vitals: Temp Pulse Resp BP Pulse Ox 98.1 F 83 20 118/66 98 12/15/18 11:37 12/15/18 11:42 12/15/18 11:37 12/15/18 11:37 12/15/18 11:42 General appearance: Present: no acute distress, well-nourished, other (pale mucous membranes) - EENT Eyes: Present: PERRL, EOM intact ENT: hearing intact, clear oral mucosa, dentition normal - Neck Neck: Present: supple, normal ROM - Respiratory Respiratory effort: normal Respiratory: bilateral: CTA - Cardiovascular Rhythm: regular Heart Sounds: Present: S1 & S2. Absent: gallop, rub - Extremities Extremities: no ischemia, No edema, Full ROM - Abdominal General gastrointestinal: soft, non-tender, non-distended, normal bowel sounds - Integumentary Integumentary: Present: clear, warm, dry - Neurologic Neurologic: CNII-XII intact, moves all extremities Results - Labs CBC & Chem 7: 12/15/18 05:49 12/15/18 05:49 Labs: Laboratory Last Values WBC 3.1 K/mm3 (4.5-11.0) L 12/15/18 05:49 RBC 2.04 M/mm3 (3.65-5.03) L 12/15/18 05:49 Hgb 7.6 gm/dl (11.8-15.2) L 12/15/18 05:49 Hct 21.8 % (35.5-45.6) L 12/15/18 05:49 MCV 107 fl (84-94) H 12/15/18 05:49 MCH 37 pg (28-32) H 12/15/18 05:49 MCHC 35 % (32-34) H 12/15/18 05:49 RDW 32.2 % (13.2-15.2) H 12/15/18 05:49 Plt Count 119 K/mm3 (140-440) L 12/15/18 05:49 Add Manual Diff Complete 12/14/18 08:36 Total Counted 100 12/14/18 08:36 Seg Neuts % (Manual) 79.0 % (40.0-70.0) H 12/14/18 08:36 Band Neutrophils % 0 % 12/14/18 08:36 Lymphocytes % (Manual) 19.0 % (13.4-35.0) 12/14/18 08:36 Reactive Lymphs % (Man) 0 % 12/14/18 08:36 Monocytes % (Manual) 1.0 % (0.0-7.3) 12/14/18 08:36 Eosinophils % (Manual) 0 % (0.0-4.3) 12/14/18 08:36 Basophils % (Manual) 1.0 % (0.0-1.8) 12/14/18 08:36 Metamyelocytes % 0 % 12/14/18 08:36 Myelocytes % 0 % 12/14/18 08:36 Promyelocytes % 0 % 12/14/18 08:36 Blast Cells % 0 % 12/14/18 08:36 Nucleated RBC % 1.0 % (0.0-0.9) H 12/14/18 08:36 Seg Neutrophils # Man 2.2 K/mm3 (1.8-7.7) 12/14/18 08:36 Band Neutrophils # 0.0 K/mm3 12/14/18 08:36 Lymphocytes # (Manual) 0.5 K/mm3 (1.2-5.4) L 12/14/18 08:36 Abs React Lymphs (Man) 0.0 K/mm3 12/14/18 08:36 Monocytes # (Manual) 0.0 K/mm3 (0.0-0.8) 12/14/18 08:36 Eosinophils # (Manual) 0.0 K/mm3 (0.0-0.4) 12/14/18 08:36 Basophils # (Manual) 0.0 K/mm3 (0.0-0.1) 12/14/18 08:36 Metamyelocytes # 0.0 K/mm3 12/14/18 08:36 Myelocytes # 0.0 K/mm3 12/14/18 08:36 Promyelocytes # 0.0 K/mm3 12/14/18 08:36 Blast Cells # 0.0 K/mm3 12/14/18 08:36 WBC Morphology Not Reportable 12/14/18 08:36 Hypersegmented Neuts Not Reportable 12/14/18 08:36 Hyposegmented Neuts Not Reportable 12/14/18 08:36 Hypogranular Neuts Not Reportable 12/14/18 08:36 Smudge Cells Not Reportable 12/14/18 08:36 Toxic Granulation Not Reportable 12/14/18 08:36 Toxic Vacuolation Not Reportable 12/14/18 08:36 Dohle Bodies Not Reportable 12/14/18 08:36 Pelger-Huet Anomaly Not Reportable 12/14/18 08:36 Svetlana Rods Not Reportable 12/14/18 08:36 Platelet Estimate Consistent w auto 12/14/18 08:36 Clumped Platelets Not Reportable 12/14/18 08:36 Plt Clumps, EDTA Not Reportable 12/14/18 08:36 Large Platelets Not Reportable 12/14/18 08:36 Giant Platelets Not Reportable 12/14/18 08:36 Platelet Satelliting Not Reportable 12/14/18 08:36 Plt Morphology Comment Not Reportable 12/14/18 08:36 RBC Morphology Not Reportable 12/14/18 08:36 Dimorphic RBCs Not Reportable 12/14/18 08:36 Polychromasia Not Reportable 12/14/18 08:36 Hypochromasia Not Reportable 12/14/18 08:36 Poikilocytosis 2+ 12/14/18 08:36 Basophilic Stippling Rare 12/14/18 08:36 Anisocytosis 3+ 12/14/18 08:36 Microcytosis 2+ 12/14/18 08:36 Macrocytosis 1+ 12/14/18 08:36 Spherocytes Not Reportable 12/14/18 08:36 Pappenheimer Bodies Not Reportable 12/14/18 08:36 Sickle Cells Not Reportable 12/14/18 08:36 Target Cells Not Reportable 12/14/18 08:36 Tear Drop Cells 1+ 12/14/18 08:36 Ovalocytes 1+ 12/14/18 08:36 Helmet Cells Not Reportable 12/14/18 08:36 [place] Bodies Not Reportable 12/14/18 08:36 [place] Rings Not Reportable 12/14/18 08:36 [place] Cells Not Reportable 12/14/18 08:36 Bite Cells Not Reportable 12/14/18 08:36 Crenated Cell Not Reportable 12/14/18 08:36 Elliptocytes 1+ 12/14/18 08:36 Acanthocytes (Spur) Not Reportable 12/14/18 08:36 Rouleaux Not Reportable 12/14/18 08:36 Hemoglobin C Crystals Not Reportable 12/14/18 08:36 Schistocytes Rare 12/14/18 08:36 Malaria parasites Not Reportable 12/14/18 08:36 Adolfo Bodies Not Reportable 12/14/18 08:36 Hem Pathologist Commnt No 12/14/18 08:36 Sodium 140 mmol/L (137-145) 12/15/18 05:49 Potassium 3.8 mmol/L (3.6-5.0) 12/15/18 05:49 Chloride 104.6 mmol/L (98-107) 12/15/18 05:49 Carbon Dioxide 25 mmol/L (22-30) 12/15/18 05:49 Anion Gap 14 mmol/L 12/15/18 05:49 BUN 10 mg/dL (9-20) 12/15/18 05:49 Creatinine 0.7 mg/dL (0.8-1.5) L 12/15/18 05:49 Estimated GFR > 60 ml/min 12/15/18 05:49 BUN/Creatinine Ratio 14 % 12/15/18 05:49 Glucose 97 mg/dL (75-100) 12/15/18 05:49 Hemoglobin A1c 5.5 % (4-6) 12/13/18 23:06 Calcium 8.2 mg/dL (8.4-10.2) L 12/15/18 05:49 Phosphorus 3.10 mg/dL (2.5-4.5) 12/13/18 16:02 Magnesium 2.00 mg/dL (1.7-2.3) 12/13/18 16:02 Iron 106 ug/dL (49-181) 12/13/18 23:06 TIBC 161 mcg/dL (250-450) L 12/13/18 23:06 % Saturation 65.84 % 12/13/18 23:06 Transferrin 143 mg/dl (180-329) L 12/13/18 23:06 Total Bilirubin 2.40 mg/dL (0.1-1.2) H 12/15/18 05:49 AST 72 units/L (5-40) H 12/15/18 05:49 ALT 40 units/L (7-56) 12/15/18 05:49 Alkaline Phosphatase 41 units/L (35-129) 12/15/18 05:49 Lactate Dehydrogenase 3141 units/L (91-180) H 12/14/18 08:36 Total Creatine Kinase 60 units/L (55-170) 12/13/18 16:57 CK-MB (CK-2) 1.3 ng/mL (0.0-4.0) 12/13/18 16:57 CK-MB (CK-2) Rel Index 2.1 (0-4) 12/13/18 16:57 Troponin T < 0.010 ng/mL (0.00-0.029) 12/13/18 16:57 NT-Pro-B Natriuret Pep 140.2 pg/mL (0-900) 12/13/18 16:02 Total Protein 6.1 g/dL (6.3-8.2) L 12/15/18 05:49 Albumin 3.6 g/dL (3.9-5) L 12/15/18 05:49 Albumin/Globulin Ratio 1.4 % 12/15/18 05:49 Vitamin B12 150 pg/mL (211-911) L 12/13/18 23:06 Blood Type O POSITIVE 12/13/18 17:10 Antibody Screen Negative 12/13/18 17:10 Crossmatch See Detail 12/13/18 17:10 Active Medications - Current Medications Current Medications: Generic Name Dose Route Start Last Admin Trade Name Freq PRN Reason Stop Dose Admin Acetaminophen 650 mg 12/13/18 21:32 Tylenol PO Q4H PRN Pain MILD(1-3)/Fever >100.5/LERNER Famotidine 20 mg 12/14/18 22:00 12/15/18 10:17 Pepcid PO 20 mg BID ELLEN Administration Dextrose/Sodium Chloride 1,000 mls @ 42 mls/hr 12/13/18 22:00 12/15/18 06:41 D5ns IV 42 mls/hr DIRECT ELLEN Administration Multivitamins/Minerals 1 each 12/15/18 10:00 12/15/18 10:17 Theragran-M Tab PO 1 each QDAY ELLEN Administration Ondansetron HCl 4 mg 12/13/18 21:32 Zofran IV Q8H PRN Nausea And Vomiting Oxycodone/Acetaminophen 1 tab 12/13/18 21:32 Percocet 5/325 PO Q6H PRN Pain, Moderate (4-6) Sodium Chloride 10 ml 12/13/18 22:00 12/15/18 10:17 Sodium Chloride Flush Syringe 10 Ml IV 10 ml BID ELLEN Administration Sodium Chloride 10 ml 12/13/18 21:32 Sodium Chloride Flush Syringe 10 Ml IV PRN PRN LINE FLUSH
[2018-12-16 05:56] LABS: Hematocrit 21.8 % (35.5-45.6); Hemoglobin 7.9 gm/dl (11.8-15.2); Mean Corpuscular HGB Conc 36 % (32-34); Mean Corpuscular Volume 104 fl (84-94); Platelet Count 119 K/mm3 (140-440); Red Blood Count 2.09 M/mm3 (3.65-5.03)
[2018-12-16 05:57] LABS: Red Cell Distribution Width 32.1 % (13.2-15.2)
[2018-12-16 06:45] LABS: Band Neutrophils # (Manual) 0.1 K/mm3; Total Cells Counted 100
[2018-12-16 06:48] LABS: Anisocytosis 3+
[2018-12-16 06:49] LABS: Poikilocytosis 2+; Tear Drop Cells 1+
[2018-12-16 06:50] LABS: Ovalocytes Few
[2018-12-16 06:51] LABS: Large Platelets Rare; Platelet Estimate Consistent w Auto
--- NOTE | 2018-12-16 07:41 | Hem/Onc Progress Note ---
Assessment and Plan 1. Macrocytic anemia. The patient received blood transfusion. B12 level was found to be low. B12 replacement. Peripheral smear has been ordered and then I discussed with the patient regarding possibility of this being a B12 deficiency. Other etiologies are also possible. Peripheral smear evaluation has been done. Symptoms of shortness of breath secondary to anemia. 12/15 d/w pt and family reg b12 - BMBx d/w dr marshall - BMBX and OP f/u pt was on oral b12 till mid Oct 201812/16 adv pt reg need for b12 inj - which may fitter and turner to be the cause we will await BMBx today pt can be d/c after that he will come tomorrow pm for b12 inj in clinic - Patient Problems (1) Macrocytic anemia Current Visit: Yes Status: Acute Subjective Date of service: 12/16/18 Principal diagnosis: b12 def - sever anemia Interval history: feeling better Objective - Constitutional Vitals: Last Vital Signs Temp 98.0 F 12/16/18 05:40 Pulse 77 12/16/18 05:40 Resp 18 12/16/18 05:40 BP 124/78 12/16/18 05:40 Pulse Ox 100 12/16/18 05:40 Pain Intensity (0-10): denies any pain General appearance: no acute distress Performance status: 2- selfcare, ambulatory - EENT Eyes: EOM intact ENT: clear oral mucosa Lymph node exam: negative cervical - Neck Neck: normal ROM - Respiratory Respiratory effort: Positive: normal Respiratory: bilateral: CTA - Cardiovascular Heart Sounds: Present: S1 & S2 Extremities: No edema - Gastrointestinal General gastrointestinal: Present: soft, non-tender Rectal Exam: deferred - Genitourinary Male genitourinary: Present: deferred - Integumentary Integumentary: warm - Musculoskeletal Musculoskeletal: strength equal bilaterally - Neurologic Neurologic: moves all extremities - Psychiatric Psychiatric: appropriate mood/affect - Labs Lab Results: Laboratory Results - last 24 hr 12/13/18 12/16/18 12/16/18 16:02 05:32 05:32 WBC 2.7 L 3.6 L RBC 1.29 L 2.09 L Hgb 5.4 L* 7.9 L Hct 15.5 L* 21.8 L MCV 120 H 104 H MCH 42 H 38 H MCHC 35 H 36 H RDW 28.1 H 32.1 H Plt Count 151 119 L Add Manual Diff Complete Complete Total Counted 100 100 Seg Neuts % (Manual) 74.0 H 67.0 Band Neutrophils % 1.0 2.0 Lymphocytes % (Manual) 23.0 22.0 Reactive Lymphs % (Man) 0 0 Monocytes % (Manual) 2.0 3.0 Eosinophils % (Manual) 0 4.0 Basophils % (Manual) 0 1.0 Metamyelocytes % 0 1.0 Myelocytes % 0 0 Promyelocytes % 0 0 Blast Cells % 0 0 Nucleated RBC % 3.0 H Seg Neutrophils # Man 2.0 2.4 Band Neutrophils # 0.0 0.1 Lymphocytes # (Manual) 0.6 L 0.8 L Abs React Lymphs (Man) 0.0 0.0 Monocytes # (Manual) 0.1 0.1 Eosinophils # (Manual) 0.0 0.1 Basophils # (Manual) 0.0 0.0 Metamyelocytes # 0.0 0.0 Myelocytes # 0.0 0.0 Promyelocytes # 0.0 0.0 Blast Cells # 0.0 0.0 Pathologist Review WBC Morphology Not Reportable Hypersegmented Neuts Not Reportable Hyposegmented Neuts Not Reportable Hypogranular Neuts Not Reportable Smudge Cells Not Reportable Toxic Granulation Not Reportable Toxic Vacuolation Not Reportable Dohle Bodies Not Reportable Pelger-Huet Anomaly Not Reportable Svetlana Rods Not Reportable Platelet Estimate Consistent w auto Consistent w auto Clumped Platelets Not Reportable Plt Clumps, EDTA Not Reportable Large Platelets Few Rare Giant Platelets Few Not Reportable Platelet Satelliting Not Reportable Plt Morphology Comment Not Reportable RBC Morphology Not Reportable Dimorphic RBCs Yes Not Reportable Polychromasia Rare Hypochromasia 2+ Not Reportable Poikilocytosis 2+ 2+ Anisocytosis 3+ 3+ Microcytosis 2+ Not Reportable Macrocytosis 2+ Not Reportable Spherocytes Not Reportable Pappenheimer Bodies Not Reportable Sickle Cells Not Reportable Target Cells Not Reportable Tear Drop Cells 2+ 1+ Ovalocytes 2+ Few Helmet Cells Not Reportable [place] Bodies Not Reportable [place] Rings Not Reportable [place] Cells Not Reportable Bite Cells Not Reportable Crenated Cell Not Reportable Elliptocytes Few Acanthocytes (Spur) Not Reportable Rouleaux Not Reportable Hemoglobin C Crystals Not Reportable Schistocytes Not Reportable Malaria parasites Not Reportable Percent Retic 0.81 Adolfo Bodies Not Reportable Hem Pathologist Commnt Sent to pathology No Folate 8.59 Medications & Allergies - Medications Allergies/Adverse Reactions: Allergies No Known Allergies Allergy (Verified 12/13/18 21:48) Home Medications: Home Medications Medication Instructions Recorded Confirmed Last Taken Type No Known Home Medications [No 12/14/18 12/14/18 Unknown History Reported Home Medications] Active Medications: Generic Name Dose Route Start Last Admin Trade Name Freq PRN Reason Stop Dose Admin Acetaminophen 650 mg 12/13/18 21:32 Tylenol PO Q4H PRN Pain MILD(1-3)/Fever >100.5/LERNER Famotidine 20 mg 12/14/18 22:00 12/15/18 23:03 Pepcid PO 20 mg BID ELLEN Administration Dextrose/Sodium Chloride 1,000 mls @ 42 mls/hr 12/13/18 22:00 12/15/18 06:41 D5ns IV 42 mls/hr DIRECT ELLEN Administration Multivitamins/Minerals 1 each 12/15/18 10:00 12/15/18 10:17 Theragran-M Tab PO 1 each QDAY ELLEN Administration Ondansetron HCl 4 mg 12/13/18 21:32 Zofran IV Q8H PRN Nausea And Vomiting Oxycodone/Acetaminophen 1 tab 12/13/18 21:32 Percocet 5/325 PO Q6H PRN Pain, Moderate (4-6) Sodium Chloride 10 ml 12/13/18 22:00 12/15/18 23:03 Sodium Chloride Flush Syringe 10 Ml IV 10 ml BID ELLEN Administration Sodium Chloride 10 ml 12/13/18 21:32 Sodium Chloride Flush Syringe 10 Ml IV PRN PRN LINE FLUSH
--- NOTE | 2018-12-16 08:53 | Discharge Summary ---
Providers - Providers Date of Admission: 12/13/18 18:41 Date of discharge: 12/16/18 Attending physician: SAM REAL 12/13/18 21:35 Consult to Physician [CONS] Routine Comment: Consulting Provider: MORGAN AU Physician Instructions: Reason For Exam: Severe Anemia 12/15/18 08:48 Consult to Physician [CONS] Routine Comment: Consulting Provider: CHRISSY COFFEY Physician Instructions: Reason For Exam: bone marrow as and biopsy Primary care physician: ANGELY PÉREZ Hospitalization Reason for admission: symptomatic anemia Condition: Critical Hospital course: 48-year-old male with no significant past medical history who presented emergency room for 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 Patient stateed his symptoms have gradually worsened. Patient denied symptoms at rest. Patient denied chest pain and complained of only fatigue.. Patient stated that his symptoms were better with rest and worse with exertion. Patient denied dark stool, syncope or dizziness. The patient was admitted with diagnosis of symptomatic anemia. Patient received blood transfusion on this hospitalization. Patient was seen by hematology in consultation and found to have macrocytic anemia with B12 low. Patient received B12 replacement and peripheral smear was ordered and completed by nephrology. Patient reportedly was on B12 oral 2 mid October 2018. Hematology advised patient that regular B12 injections will likely be needed. Patient is to undergo bone marrow biopsy for further evaluation and will discharge home with follow-up of results in central sterilization technician's office. Patient is to follow-up tomorrow afternoon for B12 injection in the clinic. Dedicated discharge time 35 minutes. Disposition: RI-30 STILL A PATIENT Time spent for discharge: 35 - Discharge Diagnoses (1) Anemia Status: Acute Qualifiers: Anemia type: unspecified type Qualified Code(s): D64.9 - Anemia, unspecified (2) OCHOA (dyspnea on exertion) Status: Acute (3) Macrocytic anemia Status: Acute (4) Symptomatic anemia Status: Acute Core Measure Documentation - Palliative Care Palliative Care/ Comfort Measures: Not Applicable - Core Measures Any of the following diagnoses?: none Exam - Constitutional Vitals: Temp Pulse Resp BP Pulse Ox 98.0 F 77 18 124/78 100 12/16/18 05:40 12/16/18 05:40 12/16/18 05:40 12/16/18 05:40 12/16/18 05:40 General appearance: Present: no acute distress, well-nourished - EENT Eyes: Present: PERRL ENT: hearing intact, clear oral mucosa - Neck Neck: Present: supple, normal ROM - Respiratory Respiratory effort: normal Respiratory: bilateral: CTA - Cardiovascular Heart Sounds: Present: S1 & S2. Absent: rub, click - Extremities Extremities: pulses symmetrical, No edema Peripheral Pulses: within normal limits - Abdominal General gastrointestinal: Present: soft, non-tender, non-distended, normal bowel sounds Male genitourinary: Present: normal - Integumentary Integumentary: Present: clear, warm, dry - Musculoskeletal Musculoskeletal: gait normal, strength equal bilaterally - Psychiatric Psychiatric: appropriate mood/affect, intact judgment & insight - Neurologic Neurologic: CNII-XII intact, moves all extremities Plan Activity: no restrictions Weight Bearing Status: Full Weight Bearing Diet: regular Follow up with: ANGELY PÉREZ MD [Primary Care Provider] - 3-5 Days MORGAN AU MD [Staff Physician] - 7 Days Prescriptions: Multivitamin Tab W-MINERAL [Multiple Vitamin/Mineral (Theragran M)] 1 each PO QDAY #30 tablet Famotidine [Pepcid] 20 mg PO BID #60 tablet oxyCODONE /ACETAMINOPHEN [Percocet 5/325 mg] 1 tab PO Q6H PRN #8 tablet PRN Reason: Pain, Moderate (4-6)
[2018-12-16 08:54] LABS: INR 1.05 (0.87-1.13)
[2018-12-16] MEDS ORDERED: VITAMIN B-12 SUB-Q SCH (10:00)
[2018-12-16] MEDS ORDERED: XYLOCAINE 1% 20 mL ONE (12:34)
[2018-12-16] MEDS ORDERED: VERSED IV NR (12:51)
[2018-12-16] MEDS ORDERED: SUBLIMAZE IV NR (12:51)
[2018-12-16] MEDS ORDERED: SUBLIMAZE ONE (13:49)
[2018-12-16] MEDS ORDERED: VERSED IV ONE (13:49)
--- NOTE | 2018-12-16 14:58 | Cat Scan Report ---
CT BIOPSY BONE MARROW: HISTORY: Anemia. DESCRIPTION OF PROCEDURE: Informed consent was obtained. Sterile technique was utilized. Conscious sedation was accomplished with Versed and fentanyl. The patient was sedated for 15 minutes. Independent cardiorespiratory monitoring by RN. Intra-observer time of [address] guidance, an introducer needle was advanced into the right posterior iliac bone. 4 aspirations and one 11-gauge bone core was obtained. Pathology was present to handle the sample. The patient tolerated the procedure without difficulty. IMPRESSION: Successful CT-guided bone marrow biopsy.
[2018-12-16 15:13] VITALS: BP 116/76
[2018-12-16] MEDS: SODIUM CHLORIDE FLUSH SYRINGE 10 ML IV SCH (15:26)
[2018-12-16] MEDS: PEPCID PO SCH (15:26)
[2018-12-16] MEDS: THERAGRAN-M Tab PO SCH (15:27)
== END 2018-12-16 17:45 | disposition home or self-care (01) | DRG 812 ==
LOC: ED 15:04 → 3A 18:41
PROVIDERS: ADMIT Internal Medicine; ATTEND Hospitalist
PROC: 30233N1 Transfusion of Nonautologous Red Blood Cells into Peripheral Vein, Percutaneous Approach (ICD-10-PCS; principal; 2018-12-14)
PROC: 07DR3ZX Extraction of Iliac Bone Marrow, Percutaneous Approach, Diagnostic (ICD-10-PCS; 2018-12-16)
DX: D53.9 Nutritional anemia, unspecified (principal); D69.6 Thrombocytopenia, unspecified; D72.819 Decreased white blood cell count, unspecified; E53.8 Deficiency of other specified B group vitamins
CPT/HCPCS: 36415; 38220; 71046; 71260; 80048; 80053; 82270; 82550; 82553; 82607; 82747; 83036; 83550; 83615; 83735; 83880; 84100; 84484; 85007; 85025; 85027; 85045; 85097; 85610; 86850; 86900; 86901; 86920; 88161; 88184; 88185; 88230; 88291; 88305; 88311; 88313; 93005; 93010; 96372; 96374; 99291; G0378; J2250; J3010; J3420; J7040; J7042; P9016; Q9967